=== PATIENT | male | born 1945 | race Caucasian/White ===

== ENCOUNTER 2019-11-04 18:38 | Inpatient (IN) | payer OTHER ==
[~2019-11-04] VITALS: Ht 188 cm; Wt 72.7 kg
[2019-11-04] MEDS ORDERED: SODIUM CHL 3% 500 ML IV ONE (19:00)
[2019-11-04 19:43] LABS: Albumin 3.5 g/dL (3.4-5.0); Potassium 3.5 mmol/L (3.5-5.1)
[2019-11-04 19:47] LABS: BUN/Creatinine Ratio 16.4; Bilirubin, Total 1.9 mg/dL (0.2-1.0); Total Protein 6.4 g/dL (6.4-8.2)
[2019-11-04 20:11] LABS: Basophils # (auto) 0 10 ^3/uL (0-0.2); Basophils % (auto) 0.3 % (0.0-2.0); Eosinophils # (auto) 0 10 ^3/uL (0-0.8); Lymphocytes # (auto) 0.5 10 ^3/uL (0.4-5.4); Monocytes # (auto) 0.4 10 ^3/uL (0-1.3)
[2019-11-04 20:12] LABS: Eosinophils % (auto) 0.6 % (0.0-7.0); Hematocrit 31.5 % (41.0-53.0); Lymphocytes % (auto) 13.2 % (10.0-50.0); Mean Corpuscular Hemoglobin 39.6 pg (28.0-32.0); Mean Corpuscular Volume 103.7 fL (80.0-100.0); Monocytes % (auto) 11.6 % (0.0-12.0); Neutrophils # (auto) 2.6 10 ^3/uL (1.6-8.6); Neutrophils % (auto) 74.3 % (37.0-80.0); Nucleated Red Blood Cells % 0.1 %; Platelet Count (auto) 133 10^3/uL (140-450); Red Blood Cells 3.04 10^6/uL (4.5-5.90); Red Cell Distribution Width 13.4 % (11.8-14.3); White Blood Cell 3.5 10^3/uL (4.4-10.8)
[2019-11-04 20:17] LABS: Mean Corpuscular Hgb Conc. 38.2 g/dL (32.0-36.0)
[2019-11-04] MEDS ORDERED: ALBU1AER4 PO (21:19)
[2019-11-04] MEDS ORDERED: SODIUM CHLORIDE 0.9% 1,000 ML IV ONE (22:15)
[2019-11-04] MEDS ORDERED: IPRATROPIUM BROM 0.5 MG/2.5ML INH SOL NEB PRN (22:15)
[2019-11-04] MEDS ORDERED: ALBUTEROL SULF 2.5 MG/0.5ML(0.5%) NEB SOLN NEB PRN (22:15)
[2019-11-04 22:31] VITALS: BP 122/68
--- NOTE | 2019-11-04 23:58 | NUR ---
MS admit from ER [facility], BRIAN admitted to tele/MS from ER. Patient oriented to LIANA NGUYEN RN primary RN, unit, room, bed, and unit policies regarding patient care and visiting hours. Patient weighed by bed scale. Bed in lowest locked position, side rails up X 2, alarm ON for pt's safety, call light is within reach. patient is alert and oriented X 4. Encouraged to call for assistance if has any questions or requests. All questions and concerns addressed at this time. Patient verbalized understanding. Will continue o monitor Q1H and/or PRN.
[2019-11-05] VITALS (7 sets, daily range): BP systolic 106–143; BP diastolic 52–82
--- NOTE | 2019-11-05 00:50 | NUR ---
Respiratory note: ASSESSMENT FOR PRN MED NEB TX. PT PRESENTING NO RESPIRATORY DISTRESS AT THIS TIME. HR 69, SPO2 96% ON ROOM AIR, RR 16, BS DIMINISHED. MED NEB TX NOT INDICATED AT THIS TIME. WILL CONTINUE TO MONITOR.
[2019-11-05 05:56] LABS: Urine WBC None Seen /hpf (0 - 3)
[2019-11-05 06:02] LABS: Urine Bacteria NONE SEEN /hpf (None Seen); Urine Blood Negative /uL (Negative); Urine Specific Gravity 1.005 (1.001-1.035)
--- NOTE | 2019-11-05 08:15 | NUR ---
Opening Shift Note Assumed care of patient, awake and alert and oriented x4. No S/S of distress/SOB or pain. Instructed on POC and to call for assist PRN, will continue to monitor for changes Q1hr and PRN.
[2019-11-05 09:01] LABS: Albumin 2.8 g/dL (3.4-5.0); Calcium 7.2 mg/dL (8.5-10.1); Potassium 3.2 mmol/L (3.5-5.1)
[2019-11-05 09:03] LABS: BUN/Creatinine Ratio 13.7; Bilirubin, Total 1.4 mg/dL (0.2-1.0); Total Protein 5.2 g/dL (6.4-8.2)
[2019-11-05 09:06] LABS: Basophils # (auto) 0 10 ^3/uL (0-0.2); Eosinophils # (auto) 0 10 ^3/uL (0-0.8); Hematocrit 27.5 % (41.0-53.0); Lymphocytes # (auto) 0.3 10 ^3/uL (0.4-5.4); Monocytes # (auto) 0.3 10 ^3/uL (0-1.3)
[2019-11-05 09:08] LABS: Basophils % (auto) 0.6 % (0.0-2.0); Eosinophils % (auto) 1.6 % (0.0-7.0); Hemoglobin 10.9 g/dL (13.5-17.5); Lymphocytes % (auto) 13.1 % (10.0-50.0); Mean Corpuscular Hemoglobin 40.5 pg (28.0-32.0); Mean Corpuscular Volume 102.5 fL (80.0-100.0); Monocytes % (auto) 10.6 % (0.0-12.0); Neutrophils # (auto) 1.9 10 ^3/uL (1.6-8.6); Neutrophils % (auto) 74.1 % (37.0-80.0); Platelet Count (auto) 109 10^3/uL (140-450); Red Blood Cells 2.69 10^6/uL (4.5-5.90); Red Cell Distribution Width 13.2 % (11.8-14.3); White Blood Cell 2.5 10^3/uL (4.4-10.8)
[2019-11-05 09:52] LABS: Mean Corpuscular Hgb Conc. 39.5 g/dL (32.0-36.0)
--- NOTE | 2019-11-05 09:58 | NUR ---
CALLED DR ANDRES REGARDING THE CRITICAL LAB NA 117, K 3.2, AND WBC 2.5. NO ANSWER ON THE PHONE AND COULD NOT LEAVE A MESSAGE BECAUSE THE VOICEMAIL BOX WAS FULL. WILL TRY TO CALL AGAIN.
--- NOTE | 2019-11-05 10:26 | NUR ---
DR ANDRES AT BEDSIDE. NEW ORDERS RECEIVED.
[2019-11-05] MEDS ORDERED: SODIUM CHL 3% 500 ML IV ONE (10:45)
--- NOTE | 2019-11-05 10:57 | NUR ---
FAMILY INFORMATION (DAUGHTERS) KELLY SOMMER MARY BETH
--- NOTE | 2019-11-05 13:37 | NUR ---
INSERTED IV RIGHT FOREARM 22 GAUGE.
--- NOTE | 2019-11-05 13:39 | NUR ---
assessment re: ss consult Patient is a 73 year old male who is answering my questions and likes to joke. Prior to admission patint lived home alone in his RV and was independent. Patient has a cane for home use. Patients PCP is Dr Thomson. I informed patient of his ss consult for food being scarce. Patient informed me food is not scarce, he has no apatite for the past 2 weeks. I called patients daughter Anila per patients permission and she informed me patient has plenty of food. Per Anila she brought patient boxes of food and drinks for the Covid lock down. Patient goes with family often. Patients food is not scarce. Per patient he will return home to his prior living arrangements on discharge. Patient may benefit from home health safety eval on discharge. Addendum: 11/05/19 at 1356 by Marleny LITTLE Amended: Links added.
[2019-11-05] MEDS: POTASSIUM CHL 20MEQ/100ML 100 ML IV SCH ×2 (14:00→16:11)
--- NOTE | 2019-11-05 15:03 | NUR ---
Respiratory note: PT ASSESSED FOR PRN MEDNEB. PT ON ROOM AIR POX 95%. PT IN NO DISTRESS AT THIS TIME. NO TX INDICATED. PT AWARE TO HAVE RT PAGED IF SOB.
[2019-11-05 15:54] LABS: BUN/Creatinine Ratio 13.3; Calcium 7.5 mg/dL (8.5-10.1); Magnesium 2.2 mg/dL (1.6-2.6); Potassium 3.6 mmol/L (3.5-5.1)
[2019-11-05 16:23] LABS: Basophils # (auto) 0 10 ^3/uL (0-0.2); Basophils % (auto) 0.4 % (0.0-2.0); Eosinophils # (auto) 0 10 ^3/uL (0-0.8); Hematocrit 29.6 % (41.0-53.0); Hemoglobin 10.9 g/dL (13.5-17.5); Lymphocytes # (auto) 0.5 10 ^3/uL (0.4-5.4); Lymphocytes % (auto) 12.4 % (10.0-50.0); Mean Corpuscular Hemoglobin 38.7 pg (28.0-32.0); Mean Corpuscular Hgb Conc. 36.9 g/dL (32.0-36.0); Mean Corpuscular Volume 104.9 fL (80.0-100.0); Monocytes # (auto) 0.6 10 ^3/uL (0-1.3); Monocytes % (auto) 14.6 % (0.0-12.0); Neutrophils # (auto) 2.9 10 ^3/uL (1.6-8.6); Neutrophils % (auto) 71.6 % (37.0-80.0); Platelet Count (auto) 127 10^3/uL (140-450); Red Blood Cells 2.82 10^6/uL (4.5-5.90); Red Cell Distribution Width 13.6 % (11.8-14.3)
[2019-11-05] MEDS: Ensure HIGH Protein Chocolate 8oz Bottle PO SCH (17:53)
--- NOTE | 2019-11-05 18:39 | NUR ---
Respiratory note: PT RECIEVED ON RA. PT AWAKE AND RESPONSIVE. NO RESP DISTRESS NOTED. SPO2 94%, HR 60, RR 16. BS DIMINISHED T/O. PT AWARE TO CALL FOR PRN TX'S IF SOB/WHEEZING.
--- NOTE | 2019-11-05 20:00 | NUR ---
Opening Shift Note Assumed care of patient, awake and alert. No S/S of distress/SOB or pain. Instructed on POC and to call for assist PRN. Bed in lowest locked position, call light within reach, side rails up x2, fall precautions in place. Will continue to monitor for changes Q1hr and PRN.
--- NOTE | 2019-11-05 20:50 | NUR ---
Family updated on pt status Spoke with daughter Maryann, after password was verified. Updated on patient status. Per daughter Maryann, she would like it to be known that patient is a current smoker and drinks alcohol, about a six pack a day. Informed daughter that information will be relayed.
--- NOTE | 2019-11-05 23:25 | NUR ---
Spoke with MD Spoke with Dr. Pearson regarding Abdomen US results, per MD, no new orders at this time, okay to relay message to Day MD. Will continue care.
[2019-11-06 05:07] VITALS: BP 119/68
[2019-11-06 09:00] VITALS: BP 137/70
[2019-11-06 09:29] LABS: BUN/Creatinine Ratio 10.9
[2019-11-06 09:52] LABS: Basophils # (auto) 0 10 ^3/uL (0-0.2); Basophils % (auto) 0.4 % (0.0-2.0); Eosinophils # (auto) 0 10 ^3/uL (0-0.8); Eosinophils % (auto) 1.1 % (0.0-7.0); Hematocrit 28.8 % (41.0-53.0); Hemoglobin 10.8 g/dL (13.5-17.5); Lymphocytes # (auto) 0.3 10 ^3/uL (0.4-5.4); Lymphocytes % (auto) 9.5 % (10.0-50.0); Mean Corpuscular Hemoglobin 39.4 pg (28.0-32.0); Mean Corpuscular Hgb Conc. 37.4 g/dL (32.0-36.0); Mean Corpuscular Volume 105.4 fL (80.0-100.0); Monocytes # (auto) 0.4 10 ^3/uL (0-1.3); Monocytes % (auto) 12.9 % (0.0-12.0); Neutrophils # (auto) 2.6 10 ^3/uL (1.6-8.6); Neutrophils % (auto) 76.1 % (37.0-80.0); Nucleated Red Blood Cells % 0.2 %; Platelet Count (auto) 121 10^3/uL (140-450); Red Blood Cells 2.74 10^6/uL (4.5-5.90); Red Cell Distribution Width 13.3 % (11.8-14.3); White Blood Cell 3.5 10^3/uL (4.4-10.8)
[2019-11-06] MEDS: Ensure HIGH Protein Chocolate 8oz Bottle PO SCH ×3 (11:04→18:21)
[2019-11-06 12:55] VITALS: BP 143/78
--- NOTE | 2019-11-06 13:41 | NUR ---
DR DOWELL AT BEDSIDE. AWARE OF CURRENT NA+ LEVELS AND ULTRASOUND RESULTS. NEW ORDERS RECEIVED TO DISCHARGE HOME.
[2019-11-06 14:37] VITALS: BP 143/78
--- NOTE | 2019-11-06 17:53 | NUR ---
SPOKE TO THE PATIENT'S 3 DAUGHTERS AND THEY FEEL LIKE HE SHOULD NOT BE DISCHARGED. RECEIVED A CALL FROM THE PATIENT'S PRIMARY DOCTOR IN [place]. SHE WANTED TO KNOW WHAT WAS GOING ON. PHONE NUMBER . DOCTOR STATED THAT THE FAMILY CALLED THE DIRECTOR OF [facility]. EXPLAINED THAT THE FAMILY HAD ISSUES WITH THE PATIENT BEING DISCHARGED. SPOKE TO THE PATIENT ON THE PHONE AND HE ANSWERED. REQUESTED THAT WE KEEP THE PATIENT FOR ANOTHER DAY. I TOLD HER I WOULD CALL DR DOWELL. CALLED DR DOWELL AND HE STATED THAT THE [facility] TERRAZZO GRINDER WOULD CALL ME BACK. TERRAZZO GRINDER CALLED ME BACK. I EXPLAINED THE SITUATION AND GAVE HER THE CONTACT INFORMATION FOR ALL 3 DAUGHTERS. TERRAZZO GRINDER STATED THAT SHE WOULD CALL ME BACK ONCE SHE SPOKE TO THE FAMILY. AWAITING A CALL BACK.
--- NOTE | 2019-11-06 18:12 | NUR ---
SPOKE TO [facility] BUSINESS PROCESS EXPERT GILLIAN. SHE STATED THAT THE PATIENT WILL BE PICKED UP TOMORROW BETWEEN 8-9 AM BY KELLY. GILLIAN ALSO STATED THAT SHE WOULD CALL DR DOWELL AND INFORM HIM THAT THE PATIENT WILL BE DISCHARGED TOMORROW.
--- NOTE | 2019-11-06 18:56 | NUR ---
Respiratory note: PT RECEIVED ON RA. PT AWAKE AND RESPONSIVE. NO RESP DISTRESS NOTED. SPO2 95%, HR 67, RR 18. BS DIMINISHED T/O. PT AWARE TO CALL FOR PRN TX'S IF SOB/WHEEZING.
--- NOTE | 2019-11-06 19:15 | NUR ---
opening note pt alert to self. pt is intermittently confused. no s/s of pain or distress. pt walks frequently. respirations even and nonlabored on room air.
--- NOTE | 2019-11-06 20:30 | NUR ---
pt encouraged to drink protein shakes. pt refused. pt continues to refuse to eat.
--- NOTE | 2019-11-06 21:35 | NUR ---
FAMILY UPDATE daughter called to get update on patient status. password received, update given.
[2019-11-06 22:00] VITALS: BP 146/61
--- NOTE | 2019-11-06 22:30 | NUR ---
pt continues to refuse to eat. encouragement offered by this RN.
[2019-11-06 23:38] VITALS: BP 131/80
[2019-11-07 05:46] VITALS: BP 144/62
[2019-11-07 06:00] VITALS: BP 146/61
--- NOTE | 2019-11-07 07:05 | NUR ---
closing note pt is currently dangling at bedside. pt did not sleep all night. patient denies pain. no s/s of distress. endorsed care to day shift RN.
[2019-11-07] MEDS: Ensure HIGH Protein Chocolate 8oz Bottle PO SCH (08:06)
[2019-11-07 09:00] VITALS: BP 144/79
== END 2019-11-07 10:15 | disposition home or self-care (01) | DRG 433 ==
LOC: EDBD 18:38 → ER 18:38 → EDSEX 18:38 → OVERFLOW 18:39 → WEST WING 23:40
PROVIDERS: ADMIT Internal Medicine; ATTEND Internal Medicine
DX: K74.60 Unspecified cirrhosis of liver (principal); E87.1 Hypo-osmolality and hyponatremia; F10.10 Alcohol abuse, uncomplicated; F17.210 Nicotine dependence, cigarettes, uncomplicated; J45.909 Unspecified asthma, uncomplicated
CPT/HCPCS: 36415; 71045; 76700; 80048; 80053; 81001; 83735; 85025; 93005; 96360; G0378; J3480